=== PATIENT | female | born 1975 | race Caucasian/White ===

== ENCOUNTER 2018-06-29 13:08 | Inpatient (IN) ==
[2018-06-29] MEDS ORDERED: Adenosine Inj 6 MG/2 ML Syringe IV.PUSH ONE ×4 (13:23→13:34)
[2018-06-29] MEDS ORDERED: Sod Chloride 0.9% Inj 1,000 ML IV.SIG SCH (13:45)
[2018-06-29 13:51] LABS: Baso # (Auto) 0.1 th/mm3 (0.0-0.2); Baso % (Auto) 0.6 % (0.0-2.0); Eos # (Auto) 0.1 th/mm3 (0.0-0.4); Eos % (Auto) 0.5 % (0.0-4.0); Hematocrit 42.3 % (35.0-46.0); Hemoglobin 14.4 gm/dL (11.6-15.3); Lymph # (Auto) 2.9 th/mm3 (1.0-4.8); Lymph % (Auto) 24.4 % (9.0-44.0); Mean Corpuscular HGB Conc 34.1 % (32.0-36.0); Mean Corpuscular Hemoglobin 31.9 pg (27.0-34.0); Mean Corpuscular Volume 93.4 fL (80.0-100.0); Mean Platelet Volume 8.5 fL (7.0-11.0); Mono # (Auto) 0.7 th/mm3 (0.0-0.9); Mono % (Auto) 5.7 % (0.0-8.0); Neut # (Auto) 7.9 th/mm3 (1.8-7.7); Neut % (Auto) 68.8 % (16.0-70.0); Platelet Count 236 th/mm3 (150-450); Red Blood Count 4.53 mil/mm3 (4.00-5.30); Red Cell Distribution Width 11.2 % (11.6-17.2); White Blood Count 11.7 th/mm3 (4.0-11.0)
[2018-06-29 13:58] LABS: Chloride 103 meq/L (98-107); Potassium 3.3 meq/L (3.5-5.1); Sodium 138 meq/L (136-145)
[2018-06-29] MEDS ORDERED: dilTIAZem Inj 50 MG/10 ML Vial IV.PUSH ONE (13:59)
[2018-06-29 14:02] LABS: Albumin 4.3 g/dL (3.4-5.0); Anion Gap 10 meq/L (5-15); Calcium 9.1 mg/dL (8.5-10.1); Carbon Dioxide 24.8 meq/L (21.0-32.0); Glucose,Random 140 mg/dL (74-106)
[2018-06-29 14:03] LABS: Blood Urea Nitrogen 10 mg/dL (7-18)
[2018-06-29 14:04] LABS: Activated Partial Thrombo Time 27.9 sec (23.4-31.7); INR 0.9 Ratio; Prothrombin Time 9.6 sec (9.8-11.6)
[2018-06-29 14:05] LABS: Alanine Aminotransferase 18 U/L (10-53); Aspartate Aminotransferase 16 U/L (15-37); Glomerular Filtration Rate 70 mL/min (>89)
[2018-06-29 14:08] LABS: Alkaline Phosphatase 84 U/L (45-117)
--- NOTE | 2018-06-29 14:09 | XR ---
EXAM DATE: 06/29/2018 2:02 PM EST AGE/SEX: 43 years / Female INDICATIONS: Chest pain, short of breath, heart racing. CLINICAL DATA: This is the patient's initial encounter. Patient reports that signs and symptoms have been present for 1 day and indicates a pain score of 1/10. MEDICAL/SURGICAL HISTORY: Hypertension. None. COMPARISON: No prior exams available for comparison. FINDINGS: The lungs are clear without infiltrate, nodule, or mass. There is no appreciable pleural effusion for technique. Heart and mediastinum are unremarkable. CONCLUSION: No acute cardiopulmonary disease. Electronically signed by: Mitch Keller MD 06/29/2018 2:07 PM EST
[2018-06-29 14:11] LABS: Creatine Kinase 90 U/L (26-192)
--- NOTE | 2018-06-29 14:43 | CT ---
EXAM DATE: 06/29/2018 2:38 PM EST AGE/SEX: 43 years / Female INDICATIONS: Short of breath. CLINICAL DATA: This is the patient's initial encounter. Patient reports that signs and symptoms have been present for 1 day and indicates a pain score of 0/10. MEDICAL/SURGICAL HISTORY: Hypertension. None. RADIATION DOSE: 10.45 CTDI (mGy) COMPARISON: [facility], CHEST 1V SINGLE AP, 06/29/2018. . TECHNIQUE: Volumetric scanning was performed using a multi-row detector CT scanner during bolus infu brayden of 75 ml Omnipaque 350 (iohexol) nonionic water-soluble contrast as a single exam dose. The sukumar a was post processed with a variety of visualization algorithms including full volume maximum intensi ty projection and sliding thin slab reformation. Using automated exposure control and adjustment of the mA and/or kV according to patient size, radiation dose was kept as low as reasonably achievable t o obtain optimal diagnostic quality images. DICOM format image data is available electronically for review and comparison. FINDINGS: The lungs are clear without infiltrate, nodule, or mass. There is no pleural effusion. No appreciab le pathological adenopathy is seen within the mediastinum. There is no evidence of PE for technique. CONCLUSION: Unremarkable study. Electronically signed by: Mitch Keller MD 06/29/2018 2:42 PM EST
[2018-06-29] MEDS ORDERED: dilTIAZem Inj 125 MG in Sodium Chlor 0.9% Inj 100 ML IV.CONT PRN (15:02)
--- NOTE | 2018-06-29 15:17 | ED ---
HPI General Chief complaint: Shortness of Breath/Dyspnea Stated complaint: sob x 30 min Time Seen by Provider: 06/29/18 13:32 Source: patient Mode of arrival: ambulatory Limitations: no limitations History of Present Illness HPI narrative: Patient is a 43 year old female who comes in complaining of SOB and palpitations. She says this started suddenly about an hour prior to arrival. She says that she was feeling sick yesterday with "flu-like symptoms" but this just started today. She says that she has had issues with palpitations in the past, but it usually is short lived and has always resolved on its own. She says she has anxiety and takes xanax for this. She has always attributed her palpitations to the anxiety before. She says that she took half of a xanax before coming in. She says she was also diagnosed with high blood pressure in the past, but stopped taking the medication because she did not feel well on it. She feels short of breath, but denies any chest pain. She denies any recent travel, leg swelling or pain to her legs. Severity is moderate. Related Data Home Medications Medication Instructions Recorded Confirmed No Known Home Medications 06/29/18 06/29/18 Allergies Allergy/AdvReac Type Severity Reaction Status Date / Time No Known Allergies Allergy Verified 06/29/18 13:16 Review of Systems ROS: all other systems reviewed are negative Constitutional Denies chills and Denies fever(s) ENT Denies dizziness Cardiovascular Reports rapid heart rate and Reports palpitations Respiratory Denies cough and Reports dyspnea Gastrointestinal Denies nausea and Denies vomiting Musculoskeletal Denies myalgias and Denies arthralgias Integumentary/Breasts Denies sores and Denies wounds Neurologic Denies focal weakness and Denies numbness [facility] Medical History Medical History Anxiety (Acute) Hypertension (Acute) Surgical History Surgical History No history of previous surgery (Acute) Social History Social History Substance History: No History of Abuse Second Hand Smoke Exposure: No Smoking Status: Current every day smoker Tobacco Type: E-Cigarettes How Often Do You Have a Drink Containing Alcohol: 4 or more times a week Recent Travel in [facility] within the Last 8 Weeks: No Recent Out of Country Travel within the Last 8 Weeks: No Immunization History Tetanus Immunization: Unsure Exam Narrative Exam Narrative: GENERAL: Awake and alert, in no acute distress. SKIN: Focused skin assessment warm/dry. No wounds or signs of infection. HEAD: Atraumatic. Normocephalic. EYES: Pupils equal and round. No scleral icterus. ENT: Mucous membranes pink and moist. NECK: Trachea midline. No JVD. CARDIOVASCULAR: Tachycardia. No murmur appreciated. RESPIRATORY: No accessory muscle use. Clear to auscultation. Breath sounds equal bilaterally. GASTROINTESTINAL: Abdomen soft, non-tender, nondistended. MUSCULOSKELETAL: No obvious deformities. No clubbing. No cyanosis. No edema. NEUROLOGICAL: Awake and alert. No obvious cranial nerve deficits. Motor grossly within normal limits. Normal speech. PSYCHIATRIC: Appropriate mood and affect; insight and judgment normal. Course Initial Documented Vital Signs Pulse Rate 225 H 06/29/18 13:18 Respiratory Rate 18 06/29/18 13:18 Pulse Oximetry 99 06/29/18 13:18 Last Documented Vital Signs Pulse Rate 89 06/29/18 14:25 Respiratory Rate 18 06/29/18 14:25 Blood Pressure 120/72 06/29/18 14:25 Pulse Oximetry 97 06/29/18 15:44 Critical Care Time Critical Care Time: Yes Total Critical Care Time: 45 Attestation: Aggregate critical care time was 45 minutes. Time to perform other separately billable procedures was not included in the critical care time. My time did not include minutes spent treating any other patients simultaneously or on activities that did not directly contribute to the patient's treatment. The services I provided to this patient were to treat and/or prevent clinically significant deterioration that could result in: serious illness or I provided critical care services requiring my management, as noted below: Chart data review, documentation time, medication orders and management, vital sign assessments/reviewing monitor data, ordering and reviewing lab tests, ordering and interpreting/reviewing x-rays and diagnostic studies, care of the patient and discussion of the patient with the admitting physicians. Medical Decision Making MDM Narrative Medical decision making narrative: Patient is a 43 year old female who comes in complaining of rapid heart rate and SOB. Exam shows tachycardia with a heart rate in the 200's. IV established, labs sent. Patient connected to the equipment monitor phototypesetting. Patient given Adenosine 6mg and 12mg with some improvement of her heart rate. Rate slowed to the 160s and underlying afib was seen. Patient then given Cardizem bolus x two and started on a drip. Labs show no acute abnormalities. CTA performed to rule out PE as a cause of sudden onset SOB and tachycardia. Patient will be admitted for further management. Medical Screen Exam Complete: Yes Emergency Medical Condition: Yes Differential Diagnosis Differential Diagnosis: afib vs electrolyte abnormalities vs PE vs dehydration vs SVT Lab Data Lab results reviewed: Yes I reviewed the patient's lab results. Result diagrams: 06/29/18 13:35 06/29/18 13:35 POC Results POC Urine Results Negative Lab Results 06/29/18 06/29/18 06/29/18 Range/Units 13:35 13:35 13:35 CBC w Diff Auto diff final WBC 11.7 H (4.0-11.0) th/mm3 RBC 4.53 (4.00-5.30) mil/mm3 Hgb 14.4 (11.6-15.3) gm/dL Hct 42.3 (35.0-46.0) % MCV 93.4 (80.0-100.0) fL MCH 31.9 (27.0-34.0) pg MCHC 34.1 (32.0-36.0) % RDW 11.2 L (11.6-17.2) % Plt Count 236 (150-450) th/mm3 MPV 8.5 (7.0-11.0) fL Neut % (Auto) 68.8 (16.0-70.0) % Lymph % (Auto) 24.4 (9.0-44.0) % Ware % (Auto) 5.7 (0.0-8.0) % Eos % (Auto) 0.5 (0.0-4.0) % Baso % (Auto) 0.6 (0.0-2.0) % Neut # (Auto) 7.9 H (1.8-7.7) th/mm3 Lymph # (Auto) 2.9 (1.0-4.8) th/mm3 Ware # (Auto) 0.7 (0.0-0.9) th/mm3 Eos # (Auto) 0.1 (0.0-0.4) th/mm3 Baso # (Auto) 0.1 (0.0-0.2) th/mm3 WBC Differential . Differential Comment . PT 9.6 L (9.8-11.6) sec INR 0.9 Ratio APTT 27.9 (23.4-31.7) sec Sodium 138 (136-145) meq/L Potassium 3.3 L (3.5-5.1) meq/L Chloride 103 (98-107) meq/L Carbon Dioxide 24.8 (21.0-32.0) meq/L Anion Gap 10 (5-15) meq/L BUN 10 (7-18) mg/dL Creatinine 0.89 (0.50-1.00) mg/dL Estimated GFR 70 L (>89) mL/min Random Glucose 140 H (74-106) mg/dL Calcium 9.1 (8.5-10.1) mg/dL Magnesium (1.5-2.5) mg/dL Total Bilirubin 0.5 (0.2-1.0) mg/dL AST 16 (15-37) U/L ALT 18 (10-53) U/L Alkaline Phosphatase 84 (45-117) U/L Total Creatine Kinase 90 (26-192) U/L Troponin I Less than 0.02 L (0.02-0.05) ng/mL Total Protein 8.0 (6.4-8.2) g/dL Albumin 4.3 (3.4-5.0) g/dL TSH 1.500 (0.358-3.740) uIU/mL Urine Opiates Screen (Neg) Ur Barbiturates Screen (Neg) Ur Amphetamines Screen (Neg) U Benzodiazepines Scrn (Neg) Urine Cocaine Screen (Neg) U Cannabinoids Screen (Neg) 06/29/18 06/29/18 Range/Units 13:35 15:30 CBC w Diff WBC (4.0-11.0) th/mm3 RBC (4.00-5.30) mil/mm3 Hgb (11.6-15.3) gm/dL Hct (35.0-46.0) % MCV (80.0-100.0) fL MCH (27.0-34.0) pg MCHC (32.0-36.0) % RDW (11.6-17.2) % Plt Count (150-450) th/mm3 MPV (7.0-11.0) fL Neut % (Auto) (16.0-70.0) % Lymph % (Auto) (9.0-44.0) % Ware % (Auto) (0.0-8.0) % Eos % (Auto) (0.0-4.0) % Baso % (Auto) (0.0-2.0) % Neut # (Auto) (1.8-7.7) th/mm3 Lymph # (Auto) (1.0-4.8) th/mm3 Ware # (Auto) (0.0-0.9) th/mm3 Eos # (Auto) (0.0-0.4) th/mm3 Baso # (Auto) (0.0-0.2) th/mm3 WBC Differential Differential Comment PT (9.8-11.6) sec INR Ratio APTT (23.4-31.7) sec Sodium (136-145) meq/L Potassium (3.5-5.1) meq/L Chloride (98-107) meq/L Carbon Dioxide (21.0-32.0) meq/L Anion Gap (5-15) meq/L BUN (7-18) mg/dL Creatinine (0.50-1.00) mg/dL Estimated GFR (>89) mL/min Random Glucose (74-106) mg/dL Calcium (8.5-10.1) mg/dL Magnesium 2.0 (1.5-2.5) mg/dL Total Bilirubin (0.2-1.0) mg/dL AST (15-37) U/L ALT (10-53) U/L Alkaline Phosphatase (45-117) U/L Total Creatine Kinase (26-192) U/L Troponin I (0.02-0.05) ng/mL Total Protein (6.4-8.2) g/dL Albumin (3.4-5.0) g/dL TSH (0.358-3.740) uIU/mL Urine Opiates Screen Neg (Neg) Ur Barbiturates Screen Neg (Neg) Ur Amphetamines Screen Neg (Neg) U Benzodiazepines Scrn Neg (Neg) Urine Cocaine Screen Neg (Neg) U Cannabinoids Screen Neg (Neg) Imaging Data Radiologist's impression: Chest CTA 06/29/18 13:32 CONCLUSION: Unremarkable study. Chest X-Ray 06/29/18 13:32 CONCLUSION: No acute cardiopulmonary disease. ECG Data EKG Prior to Arrival: No Attestation: I personally reviewed and interpreted this ECG as follows: Interpretation: ECG shows SVT Repeat ECG after adenosine shows afib Discharge Plan Discharge Disposition Patient Disposition: 30 Still Patient Discharge Condition Condition: Stable Discharge Details Diagnosis: Atrial fibrillation with RVR Physicians Team ED Provider: Kelsey Ahuja Primary Care Provider: Angélica Ortega Attending Provider: Alejandrina Bonilla Discharge Interventions Interventions: ED Discharge Assessment Last Done: 06/29/18 16:04 Discharge Planning - Case Management Last Done: 06/29/18 15:49 Status ED Status: Admitted Patient
[2018-06-29] MEDS ORDERED: Bisacodyl 10 MG Supp RECTAL PRN (15:19)
[2018-06-29] MEDS ORDERED: Acetaminophen 325 MG Tablet PO PRN (15:24)
[2018-06-29] MEDS ORDERED: Potassium Chlor 20 mEq Premix 20 MEQ/100 ML PIGGYBACK IV.SIG SCH (15:30)
[2018-06-29 16:00] LABS: Amphetamine Screen,Urine Neg (Neg); Barbiturate Screen,Urine Neg (Neg); Cannabinoid Screen,Urine Neg (Neg); Cocaine Screen,Urine Neg (Neg)
[2018-06-29 16:02] LABS: Opiate Screen,Urine Neg (Neg)
[2018-06-29] MEDS ORDERED: Metoprolol Tartrate 25 MG Tablet PO ONE (16:10)
--- NOTE | 2018-06-29 16:13 | P.HP ---
History of Present Illness Service: Hospitalist Primary Care Physician: Angélica Ortega MD Chief Complaint: Palpitations, dizziness History of Present Illness: Ms. Cesar is a pleasant 43-year-old female with a history of anxiety who presented to the emergency department due to feeling of palpitation, dizziness as well as mild shortness of breath. 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 She reports having similar but milder symptoms 2 or 3 times before but she attributed that to anxiety. In the ED, her heart rate was above 200 and she received adenosine. Post-adenosine therapy, her rhythm was determined to be atrial fibrillation with rapid ventricular response. She received 2 doses of IV diltiazem which did not control her heart rate. Patient was subsequently started on diltiazem drip. Patient is hemodynamically unstable. Currently she denies any chest pain, shortness of breath, fever or chills. Of note patient used to be on lisinopril for blood pressure. However she has not taking any blood pressure medication in the last 2 months. Her blood pressure in the last 2 months has been in the 130-140 range. Past medical history: Anxiety, mild hypertension. Past surgical history: No major surgery in the past Social history: Patient smokes E cigarettes, drinks 2 glasses of wine a night. Family history: Patient's father at 62 from myocardial infarction, mother is in good health. Review of Systems All other systems reviewed negative except as stated in HPI [facility] - History History Provided By: Patient - Medical History Medical History: Medical History (Last Updated 06/29/18 @ 16:04 by Alejandrina Bonilla DO) Anxiety Hypertension - Surgical History Surgical History: Surgical History (Last Reviewed 06/29/18 @ 16:04 by Alejandrina Bonilla DO) No history of previous surgery - Tobacco History Tobacco Use In Past 30 Days: Yes Smoking Status: Current every day smoker Tobacco Type: E-Cigarettes - Alcohol History How Often Do You Have a Drink Containing Alcohol: 4 or more times a week - Substance Use History Substance History: No History of Abuse - Travel History Recent Travel in the [place] Within the Last 8 Weeks: No Recent Travel Out of the Country Within the Last 8 Weeks: No - Immunization History Tetanus Immunization: Unsure Medications and Allergies Active Medications: Active Medications Acetaminophen (Tylenol) 650 mg PO Q4H PRN PRN Reason: Headache, fever, pain 1-4 Al Hydroxide/Mg Hydroxide (Milk Of Magnesia Liq) 30 ml PO Q12H PRN PRN Reason: Mild Constipation Aspirin (Ecotrin) 81 mg PO DAILY JOSE M Bisacodyl (Dulcolax Supp) 10 mg RECTAL DAILY PRN PRN Reason: SEVERE CONSITIPATION Diltiazem HCl 125 mg/ Sodium (Chloride) 125 mls @ 5 mls/hr IV.CONT TITRATE PRN ; Protocol PRN Reason: Per Protocol Last Titration: 06/29/18 15:51 Dose: 10 mg/hr, 10 mls/hr Potassium Chloride (Kcl 20 Meq Premix Inj) 20 meq in 100 mls @ 50 mls/hr IV.SIG Q2H JOSE M Stop: 06/29/18 19:29 Lactulose (Lactulose Liq) 30 ml PO DAILY PRN PRN Reason: SEVERE CONSITIPATION Metoprolol Tartrate (Lopressor) 25 mg PO BID JOSE M Ondansetron HCl (Zofran Inj) 4 mg IV.PUSH Q6H PRN PRN Reason: NAUSEA OR VOMITING Sennosides (Senokot) 17.2 mg PO Q12H PRN PRN Reason: Moderate Constipation Allergies Allergy/AdvReac Type Severity Reaction Status Date / Time No Known Allergies Allergy Verified 06/29/18 13:16 Home Medications Medication Instructions Recorded Confirmed Type No Known Home Medications 06/29/18 06/29/18 History Exam Vital signs: Vital Signs 06/29/18 13:18 06/29/18 13:20 06/29/18 13:29 Pulse Rate 225 H 177 H Respiratory Rate 18 18 Blood Pressure 205/177 H Pulse Oximetry 99 99 100 06/29/18 13:49 06/29/18 14:01 06/29/18 14:18 Pulse Rate 105 H 115 H 115 H Respiratory Rate 18 18 Blood Pressure 172/118 H 172/107 H Pulse Oximetry 99 99 99 06/29/18 14:25 06/29/18 15:44 Pulse Rate 89 Respiratory Rate 18 Blood Pressure 120/72 Pulse Oximetry 99 97 Intake & Output 06/28/18 06/29/18 06/29/18 18:59 06:59 18:59 Intake Total 1000 / 1000 Balance 1000 / 1000 Weight 75.6 kg Intake: IV 1000 / 1000 NS Inj 1,000 ML @ 1000 mls/hr 1000 / 1000 IV.SIG BOLUS JOSE M Rx#:[id number] Narrative: GENERAL: This is a well-nourished, well-developed patient, in no apparent distress. SKIN: No rashes, ecchymoses or lesions. Warm and dry. HEAD: Atraumatic. Normocephalic. No temporal or scalp tenderness. EYES: Pupils equal round and reactive. No injection or drainage. ENT: Nose without bleeding, purulent drainage or septal hematoma. Airway patent. NECK: Trachea midline. No lymphadenopathy. Supple, nontender, no meningeal signs. CARDIOVASCULAR: Irreg Irreg, tachycardic without murmurs, gallops, or rubs. No JVD. RESPIRATORY: Clear to auscultation. Breath sounds equal bilaterally. No wheezes , rales, or rhonchi. GASTROINTESTINAL: Abdomen soft, non-tender, nondistended. No guarding. MUSCULOSKELETAL: Extremities without clubbing, cyanosis, or edema. NEUROLOGICAL: Awake and alert. Cranial nerves II through XII intact. No focal neurological deficits. Normal speech. Results - Labs CBC & Chem 7: 06/29/18 13:35 06/29/18 13:35 Labs: Laboratory Results - last 24 hr 06/29/18 06/29/18 06/29/18 13:35 13:35 13:35 CBC w Diff Auto diff final WBC 11.7 H RBC 4.53 Hgb 14.4 Hct 42.3 MCV 93.4 MCH 31.9 MCHC 34.1 RDW 11.2 L Plt Count 236 MPV 8.5 Neut % (Auto) 68.8 Lymph % (Auto) 24.4 [place] % (Auto) 5.7 Eos % (Auto) 0.5 Baso % (Auto) 0.6 Neut # (Auto) 7.9 H Lymph # (Auto) 2.9 [place] # (Auto) 0.7 Eos # (Auto) 0.1 Baso # (Auto) 0.1 WBC Differential . Differential Comment . PT 9.6 L INR 0.9 APTT 27.9 Sodium 138 Potassium 3.3 L Chloride 103 Carbon Dioxide 24.8 Anion Gap 10 BUN 10 Creatinine 0.89 Estimated GFR 70 L Random Glucose 140 H Calcium 9.1 Total Bilirubin 0.5 AST 16 ALT 18 Alkaline Phosphatase 84 Total Creatine Kinase 90 Troponin I Less than 0.02 L Total Protein 8.0 Albumin 4.3 TSH 1.500 - Imaging Impressions Chest CTA 06/29/18 13:32 CONCLUSION: Unremarkable study. Chest X-Ray 06/29/18 13:32 CONCLUSION: No acute cardiopulmonary disease. Caprini VTE Risk Assessment Caprini VTE Risk Assessment: No/Low Risk (score <= 1) Caprini Risk Assessment Model: Point Value = 1 Point Value = 2 Point Value = 3 Point Value = 5 Age 41-60 Minor surgery BMI > 25 kg/m2 Swollen legs Varicose veins or History of unexplained or recurrent spontaneous Oral contraceptives or hormone replacement Sepsis (< 1 month) Serious lung disease, including pneumonia (< 1 month) Abnormal pulmonary function Acute myocardial infarction Congestive heart failure (< 1 month) History of inflammatory bowel disease Medical patient at bed rest Age 61-74 Arthroscopic surgery Major open surgery (> 45 min) Laparoscopic surgery (> 45 min) Malignancy Confined to bed (> 72 hours) Immobilizing plaster cast Central venous access Age >= 75 History of VTE Family history of VTE Factor V Leiden Prothrombin [id number] Lupus anticoagulant Anticardiolipin antibodies Elevated serum homocysteine Heparin-induced thrombocytopenia Other congenital or acquired thrombophilia Stroke (< 1 month) Elective arthroplasty Hip, pelvis, or leg fracture Acute spinal cord injury (< 1 month) Prophylaxis Regimen: Total Risk Factor Score Risk Level Prophylaxis Regimen 0-1 Low Early ambulation 2 Moderate Order ONE of the following: *Sequential Compression Device (SCD) *Heparin 5000 units SQ BID 3-4 Higher Order ONE of the following medications: *Heparin 5000 units SQ TID *Enoxaparin/Lovenox 40 mg SQ daily (WT < 150 kg, CrCl > 30 mL/min) *Enoxaparin/Lovenox 30 mg SQ daily (WT < 150 kg, CrCl > 10-29 mL/min) *Enoxaparin/Lovenox 30 mg SQ BID (WT < 150 kg, CrCl > 30 mL/min) AND/OR *Sequential Compression Device (SCD) 5 or more Highest Order ONE of the following medications: *Heparin 5000 units SQ TID (Preferred with Epidurals) *Enoxaparin/Lovenox 40 mg SQ daily (WT < 150 kg, CrCl > 30 mL/min) *Enoxaparin/Lovenox 30 mg SQ daily (WT < 150 kg, CrCl > 10-29 mL/min) *Enoxaparin/Lovenox 30 mg SQ BID (WT < 150 kg, CrCl > 30 mL/min) AND *Sequential Compression Device (SCD) Assessment and Plan - Plan Ms. Cesar is a pleasant 43-year-old female with a history of anxiety, hypertension who presented to the emergency department due to palpitation, dizziness and mild shortness of breath. 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 Acute onset atrial fibrillation -TSH within normal range. Patient is status post Cardizem IV push as well as adenosine for SVT -Currently on Cardizem drip -We will start patient on metoprolol 25 mg twice daily. -If needed we will consider p.o. Cardizem as well. -[id number] score 1 (female). -Patient's BP at home has been 130-140s range without BP meds. HTN was not used in the calculation of [id number] score. -Will start patient on Aspirin 81mg Qday. Hypokalemia -K+ 3.3. Will replace with PO KCL. Anxiety - Patient uses anxiolytics PRN. Probably Clonazepam. Full code. SCDs. Discharge plan: Likely discharge in the next 24-48 hours.
[2018-06-29] MEDS: Metoprolol Tartrate 25 MG Tablet PO SCH (20:35)
[2018-06-30] MEDS: Metoprolol Tartrate 25 MG Tablet PO SCH (08:20)
--- NOTE | 2018-06-30 10:22 | P.PN ---
Subjective Interval history: Follow up for Afib. Patient is doing well. No CP, SOB, fever, chills. Currently in NSR with HR 70. Physical Exam Vital signs: Vital Signs 06/29/18 13:18 06/29/18 13:20 06/29/18 13:29 Temperature Pulse Rate 225 H 177 H Respiratory Rate 18 18 Blood Pressure 205/177 H Pulse Oximetry 99 99 100 06/29/18 13:49 06/29/18 14:01 06/29/18 14:18 Temperature Pulse Rate 105 H 115 H 115 H Respiratory Rate 18 18 Blood Pressure 172/118 H 172/107 H Pulse Oximetry 99 99 99 06/29/18 14:25 06/29/18 15:44 06/29/18 16:05 Temperature 98.4 F Pulse Rate 89 106 H Respiratory Rate 18 18 Blood Pressure 120/72 155/92 H Pulse Oximetry 99 97 98 06/29/18 16:15 06/29/18 16:30 06/29/18 16:36 Temperature Pulse Rate 106 H 126 H Respiratory Rate 18 14 Blood Pressure 137/99 H 146/83 H Pulse Oximetry 99 99 96 06/29/18 16:45 06/29/18 17:00 06/29/18 17:15 Temperature Pulse Rate 119 H 90 80 Respiratory Rate 18 17 19 Blood Pressure 149/97 H 139/93 H 129/93 H Pulse Oximetry 98 98 98 06/29/18 17:30 06/29/18 17:45 06/29/18 19:30 Temperature Pulse Rate 84 74 Respiratory Rate 17 21 Blood Pressure 116/81 120/81 Pulse Oximetry 98 98 99 06/29/18 20:00 06/30/18 00:00 06/30/18 04:00 Temperature 98.4 F 97.6 F 98.1 F Pulse Rate 72 65 64 Respiratory Rate 22 18 Blood Pressure 131/77 118/87 91/65 L Pulse Oximetry 98 98 Intake & Output 06/29/18 06/30/18 06/30/18 18:59 06:59 18:59 Intake Total 1480 / 1480 720 / 720 Balance 1480 / 1480 720 / 720 Weight 72.4 kg 72 kg Intake: IV 1000 / 1000 Cardizem Inj 125 MG In NS Inj 0 / 0 100 ML @ 5 MG/HR 5 mls/hr IV. CONT TITRATE PRN Rx#:[id number] NS Inj 1,000 ML @ 1000 mls/hr 1000 / 1000 IV.SIG BOLUS JOSE M Rx#:[id number] Oral 480 / 480 720 / 720 Other: # Urine Diapers 2 Date of Last Bowel Movement 06/29/18 Weight On Admission 72.4 kg Narrative: GENERAL: Alert, Oriented x 3, NAD. SKIN: Warm and dry. HEAD: Normocephalic. EYES: No scleral icterus. No injection or drainage. NECK: Supple, trachea midline. No JVD or lymphadenopathy. CARDIOVASCULAR: Regular rate and rhythm without murmurs, gallops, or rubs. RESPIRATORY: Breath sounds equal bilaterally. No accessory muscle use. GASTROINTESTINAL: Abdomen soft, non-tender, nondistended. MUSCULOSKELETAL: No cyanosis, or edema. BACK: Nontender without obvious deformity. No CVA tenderness. Results - Labs CBC & Chem 7: 06/29/18 13:35 06/30/18 04:52 Laboratory Results - last 24 hr 06/29/18 06/29/18 06/29/18 13:35 13:35 13:35 CBC w Diff Auto diff final WBC 11.7 H RBC 4.53 Hgb 14.4 Hct 42.3 MCV 93.4 MCH 31.9 MCHC 34.1 RDW 11.2 L Plt Count 236 MPV 8.5 Neut % (Auto) 68.8 Lymph % (Auto) 24.4 Evangeline % (Auto) 5.7 Eos % (Auto) 0.5 Baso % (Auto) 0.6 Neut # (Auto) 7.9 H Lymph # (Auto) 2.9 Evangeline # (Auto) 0.7 Eos # (Auto) 0.1 Baso # (Auto) 0.1 WBC Differential . Differential Comment . PT 9.6 L INR 0.9 APTT 27.9 Sodium 138 Potassium 3.3 L Chloride 103 Carbon Dioxide 24.8 Anion Gap 10 BUN 10 Creatinine 0.89 Estimated GFR 70 L Random Glucose 140 H Calcium 9.1 Magnesium Total Bilirubin 0.5 AST 16 ALT 18 Alkaline Phosphatase 84 Total Creatine Kinase 90 Troponin I Less than 0.02 L Total Protein 8.0 Albumin 4.3 TSH 1.500 Urine Opiates Screen Ur Barbiturates Screen Ur Amphetamines Screen U Benzodiazepines Scrn Urine Cocaine Screen U Cannabinoids Screen 06/29/18 06/29/18 06/30/18 13:35 15:30 04:52 CBC w Diff WBC RBC Hgb Hct MCV MCH MCHC RDW Plt Count MPV Neut % (Auto) Lymph % (Auto) Evangeline % (Auto) Eos % (Auto) Baso % (Auto) Neut # (Auto) Lymph # (Auto) Evangeline # (Auto) Eos # (Auto) Baso # (Auto) WBC Differential Differential Comment PT INR APTT Sodium Potassium 4.3 D Chloride Carbon Dioxide Anion Gap BUN Creatinine Estimated GFR Random Glucose Calcium Magnesium 2.0 Total Bilirubin AST ALT Alkaline Phosphatase Total Creatine Kinase Troponin I Total Protein Albumin TSH Urine Opiates Screen Neg Ur Barbiturates Screen Neg Ur Amphetamines Screen Neg U Benzodiazepines Scrn Neg Urine Cocaine Screen Neg U Cannabinoids Screen Neg - Imaging Impressions Chest CTA 06/29/18 13:32 CONCLUSION: Unremarkable study. Chest X-Ray 06/29/18 13:32 CONCLUSION: No acute cardiopulmonary disease. Assessment and Plan - Plan Ms. Cesar is a pleasant 43-year-old female with a history of anxiety, hypertension who presented to the emergency department due to palpitation, dizziness and mild shortness of breath. 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 Acute onset atrial fibrillation -TSH within normal range. Patient is status post Cardizem IV push as well as adenosine for SVT -She required Cardizem drip which was discontinued last night. -Continue metoprolol tartrate 25 mg p.o. twice daily -[id number] score 1 (female). -Patient's BP at home has been 130-140s range without BP meds. HTN was not used in the calculation of [id number] score. -Will continue patient on Aspirin 81mg Qday. Hypokalemia -K+ 3.3. Replaced with p.o. potassium. Potassium corrected to 4.3. Anxiety - Patient uses anxiolytics PRN. Probably Clonazepam. Full code. SCDs. Discharge patient to home Condition on discharge: Improved Cardiac Diet as tolerated Ad Ana activity Rx written: Metoprolol 25mg BID Aspirin 81mg Qday We discussed at length regarding metoprolol and aspirin. Metoprolol is being used for rate control and aspirin for stroke prevention due to [id number] score 1. Advised patient to cut metoprolol to 12.5 mg twice daily if her heart rate remains in the 60s range. She can discontinue or skip metoprolol if her heart rate drops to 40s and 50s. Close follow-up with PCP is required to titrate this medication. Patient verbalized understanding. Follow-up with primary care physician within 1-2 weeks.
[2018-06-30 12:14] VITALS: BP 127/83; PULSE 74; RESP 22; TEMP 98.2; O2SAT 96
--- NOTE | 2018-06-30 16:39 | ECG ---
Date Performed: 06/29/2018 Time Performed: 13:19:55 PTAGE: 43 years EKG: ATRIAL FIBRILLATION WITH RAPID VENTRICULAR RESPONSE WITH ABERRANT CONDUCTION OR VENTRICULAR PREMATURE COMPLEXES NONSPECIFIC ST & T-WAVE ABNORMALITY ABNORMAL RHYTHM ECG NO PREVIOUS TRACING DOCTOR: Michelle Contreras Interpretating Date/Time 07/03/2018 07:03:26
--- NOTE | 2018-06-30 16:39 | ECG ---
Date Performed: 06/29/2018 Time Performed: 13:30:20 PTAGE: 43 years EKG: ATRIAL FIBRILLATION WITH RAPID VENTRICULAR RESPONSE MODERATE ST DEPRESSION Since previous t racing, no significant change noted ABNORMAL ECG PREVIOUS TRACING : 06/29/2018 13.19 DOCTOR: Michelle Contreras Interpretating Date/Time 06/30/2018 16:38:11
--- NOTE | 2018-06-30 16:39 | ECG ---
Date Performed: 06/29/2018 Time Performed: 14:05:34 PTAGE: 43 years EKG: ATRIAL FIBRILLATION WITH RAPID VENTRICULAR RESPONSE MODERATE ST DEPRESSION Since previous t racing, no significant change noted ABNORMAL ECG PREVIOUS TRACING : 06/29/2018 13.30 DOCTOR: Michelle Contreras Interpretating Date/Time 06/30/2018 16:38:21
== END 2018-06-30 11:00 | disposition home or self-care (01) ==
LOC: PHED 13:08 → PHEDA 15:16 → PHICU 16:05
PROVIDERS: ADMIT Hospitalist; ATTEND Hospitalist